=== PATIENT | female | born 2000 | race African-American/Black ===

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

== ENCOUNTER 2019-01-14 16:32 | Emergency (ER) | payer OTHER ==
[2019-01-14 16:53] VITALS: BP 133/82
[2019-01-14] MEDS ORDERED: Ibuprofen TAB* 400 MG PO ONE (18:10)
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
--- NOTE | 2019-01-15 08:05 | UC ---
Course/Dx - Course Course Of Treatment: Dr. Gonzalez radiologist Requested for the patient to be referred to neurosurgery for evaluation for a chronic issue of the lumbar spine. The patient has chronic issues with a spondylolysis. We will give a call to the patient and refer her to Dr. Griffin who was mrp controller for neurosurgery. - Diagnoses Provider Diagnoses: Low back strain, Cervical paraspinal muscle spasm, UTI (urinary tract infection ) Discharge - Sign-Out/Discharge Documenting (check all that apply): Patient Departure All imaging exams completed and their final reports reviewed: Yes - Discharge Plan Condition: Stable Disposition: HOME Prescriptions: Cephalexin CAP* [Keflex CAP*] 500 mg PO BID #14 cap Cyclobenzaprine TAB* [Flexeril 10 MG TAB*] 10 mg PO BID PRN #14 tab PRN Reason: Spasms - Muscle Ibuprofen TAB* [Motrin TAB* 600 MG] 600 mg PO Q6H PRN #30 tab PRN Reason: Pain Patient Education Materials: Urinary Tract Infection in Women (ED), Low Back Strain (ED), Muscle Spasm (ED) Forms: *Work Release Referrals: [facility] [Provider Group] - 3 Days Aviva Morgan MD [Primary Care Provider] - 3 Days Additional Instructions: 1- Please continue taking Ibuprofen PO q6-8hrs after meals as directed for pain. 2- Take Flexeril PO as directed for muscle spasm. Please do not drive while taking the medication. 3- Wear a back support. Avoid strenuous exercise of heavy lifting. 4- Take Keflex PO as directed for possible UTI. Urine was sent to the lab. You will be notified of any abnormality 5- Please follow up with Orthopedic Dr from [facility] if not improvement of symptoms, and further management on your symptoms. - Billing Disposition and Condition Condition: STABLE Disposition: Home
--- NOTE | 2019-01-17 17:02 | UC ---
- Progress Note Progress Note: urine culture final: Staphylococcus aureus 50,000-75,000 CFU/mL Patient is on Keflex, which will likely covering the staph aureus as it is Sensitive to cefazolin. RN to call and check with patient if her urinary symptoms have improved. If she still has urinary symptoms, we can switch antibiotic to a different one. Course/Dx - Diagnoses Provider Diagnoses: Low back strain, Cervical paraspinal muscle spasm, UTI (urinary tract infection ) Discharge - Sign-Out/Discharge Documenting (check all that apply): Post-Discharge Follow Up All imaging exams completed and their final reports reviewed: No - Discharge Plan Condition: Stable Disposition: HOME Prescriptions: Cephalexin CAP* [Keflex CAP*] 500 mg PO BID #14 cap Cyclobenzaprine TAB* [Flexeril 10 MG TAB*] 10 mg PO BID PRN #14 tab PRN Reason: Spasms - Muscle Ibuprofen TAB* [Motrin TAB* 600 MG] 600 mg PO Q6H PRN #30 tab PRN Reason: Pain Patient Education Materials: Urinary Tract Infection in Women (ED), Low Back Strain (ED), Muscle Spasm (ED) Forms: *Work Release Referrals: [facility] [Provider Group] - 3 Days Aviva Morgan MD [Primary Care Provider] - 3 Days Additional Instructions: 1- Please continue taking Ibuprofen PO q6-8hrs after meals as directed for pain. 2- Take Flexeril PO as directed for muscle spasm. Please do not drive while taking the medication. 3- Wear a back support. Avoid strenuous exercise of heavy lifting. 4- Take Keflex PO as directed for possible UTI. Urine was sent to the lab. You will be notified of any abnormality 5- Please follow up with Orthopedic Dr from [facility] Medicine if not improvement of symptoms, and further management on your symptoms. - Billing Disposition and Condition Condition: STABLE Disposition: Home
== END 2019-01-14 19:20 | disposition home or self-care (01) ==
LOC: UCEAST 16:32
DX: S39.012A Strain of muscle, fascia and tendon of lower back, initial encounter (principal); V49.9XXA Car occupant (driver) (passenger) injured in unspecified traffic accident, initial encounter; Y92.9 Unspecified place or not applicable; M47.816 Spondylosis without myelopathy or radiculopathy, lumbar region; M62.838 Other muscle spasm; N39.0 Urinary tract infection, site not specified; B95.61 Methicillin susceptible Staphylococcus aureus infection as the cause of diseases classified elsewhere; Z32.02 Encounter for pregnancy test, result negative; G89.21 Chronic pain due to trauma; F17.210 Nicotine dependence, cigarettes, uncomplicated
CPT/HCPCS: 72050; 72110; 81003; 84702; 87077; 87086; 87186; 99212; A9270-GY; G0463

== ENCOUNTER 2019-02-04 14:48 | Emergency (ER) | payer OTHER ==
--- NOTE | 2019-02-04 14:57 | UC ---
Lower Extremity/Ankle HPI - HPI Summary HPI Summary: 18 yo female presents with RIGHT ankle pain. She tells me that last night she was walking her dog and the dog pulled. Pt stumbled going forward and inverted her right ankle. Has some pain in the lateral aspect since that time. She is most concerned because she has a history of fx x3 to this foot/ankle. She has been elevating and applying ice which has helped, but weight bearing makes her pain worse. Denies numbness or tingling. - History of Current Complaint Stated Complaint: RT ANKLE INJURY Time Seen by Provider: 02/04/19 14:57 Hx Obtained From: Patient Hx Last Menstrual Period: 2 weeks Onset/Duration: Sudden Onset Severity Initially: Mild Severity Currently: Mild Pain Intensity: 3 Pain Scale Used: 0-10 Numeric Aggravating Factor(s): Standing, Ambulation Alleviating Factor(s): Rest, Elevation Able to Bear Weight: Yes - Allergies/Home Medications Allergies/Adverse Reactions: Allergies Allergy/AdvReac Type Severity Reaction Status Date / Time No Known Allergies Allergy Verified 02/04/19 15:04 Home Medications: Home Medications NK [No Home Medications Reported] 02/04/19 [History Confirmed 02/04/19] PMH/Surg Hx/FS Hx/Imm Hx - Additional Past Medical History Additional PMH: None - Surgical History Surgical History: None - Family History Known Family History: Positive: Unknown - adopted - no knowledge of family history Family History: unknown- pt is adopted - Social History Lives: With Family Alcohol Use: None Substance Use Type: None Substance Use Comment - Amount & Last Used: a few times a week Smoking Status (MU): Light Every Day Tobacco Smoker Type: Cigarettes Have You Smoked in the Last Year: No Household Exposure Type: Cigarettes - Immunization History Most Recent Influenza Vaccination: 07/18 Vaccination Up to Date: Yes Review of Systems All Other Systems Reviewed And Are Negative: Yes Constitutional: Positive: Negative Skin: Positive: Negative Respiratory: Positive: Negative Cardiovascular: Positive: Negative Neurovascular: Positive: Negative Musculoskeletal: Positive: Other: - Right ankle pain Neurological: Positive: Negative Psychological: Positive: Negative Physical Exam - Summary Physical Exam Summary: GENERAL: NAD. WDWN. No pain distress. SKIN: No rashes, sores, lesions, or open wounds. CHEST: No accessory muscle use. Breathing comfortably and in no distress. CV: Pulses intact PT and DP. Cap refill <2seconds MSK: RIGHT ANKLE: Mild TTP at lateral malleolus overlying ATFL. Mild edema here. FROM. Strength 5/5. Negative talar tilt. No increased laxity. Negative [place] test. NTTP dorsal aspect of foot or at area of avulsion seen on XR. NEURO: Alert. Sensations intact and symmetric B/L LEs PSYCH: Age appropriate behavior. Triage Information Reviewed: Yes Vital Signs: Vital Signs: Temp Pulse Resp BP Pulse Ox 98.0 F 83 18 145/82 99 02/04/19 15:04 02/04/19 15:04 02/04/19 15:04 02/04/19 15:04 02/04/19 15:04 Vital Signs Reviewed: Yes Lower Extremity Course/Dx - Course Course Of Treatment: XR: IMPRESSION: SMALL AVULSION FRACTURE FRAGMENT ARISING FROM THE DORSAL NAVICULAR BONE, AGE INDETERMINATE I compared today's XR to right ankle XR in 07/2017 and small avulsion fragment was present at that time as well and appears unchanged today. This is consistent with pt's history of previous non-healing fx. Today I suspect she has an ankle sprain. In the clinic her ankle was AMPARO wrapped , gel splint applied, and provided with crutches for support. Advised to RICE and f/u with Ortho if symptoms do not improve in 5-7 days - Differential Dx/Diagnosis Provider Diagnosis: Ankle sprain Discharge - Sign-Out/Discharge Documenting (check all that apply): Patient Departure All imaging exams completed and their final reports reviewed: Yes - Discharge Plan Condition: Stable Disposition: HOME Patient Education Materials: Ankle Sprain (ED) Referrals: Aviva Morgan MD [Primary Care Provider] - Venu Terrazas MD [Medical Doctor] - If Needed Additional Instructions: If you develop a fever, shortness of breath, chest pain, new or worsening symptoms - please call your PCP or go to the ED immediately. 1) Rest, Ice, and elevate your ankle intermittently throughout the day to reduce pain and swelling 2) Use the gel splint and crutches as needed for discomfort 3) If your symptoms do not improve in 5-7 days, please call Orthopedics at the number below to schedule an appointment for a recheck - Billing Disposition and Condition Condition: STABLE Disposition: Home
[2019-02-04 15:08] VITALS: BP 145/82
== END 2019-02-04 15:50 | disposition home or self-care (01) ==
LOC: UCEAST 14:48
DX: S93.401A Sprain of unspecified ligament of right ankle, initial encounter (principal); X58.XXXA Exposure to other specified factors, initial encounter; Y93.K1 Activity, walking an animal; Y92.9 Unspecified place or not applicable; Y99.8 Other external cause status; F17.210 Nicotine dependence, cigarettes, uncomplicated
CPT/HCPCS: 99213; G0463

== ENCOUNTER 2019-11-12 10:48 | Emergency (ER) | payer OTHER ==
[2019-11-12 11:45] VITALS: BP 110/77
--- NOTE | 2019-11-12 12:23 | UC ---
Throat Pain/Nasal Allan HPI - HPI Summary HPI Summary: 19 R Kamaljit of present illness sore throat 2 days. Patient states yesterday she noticed white spots in the back of her throat. Notes pain with swallowing. Denies URI symptoms. Denies cough and shortness breath. Denies nausea or vomiting. Denies fever and chills. Denies taking anything for symptomatic relief. Would like to be tested for strep. Denies exposure - History of Current Complaint Chief Complaint: UCGeneralIllness Stated Complaint: SORE THROAT Hx Obtained From: Patient Hx Last Menstrual Period: 10/14/19 Pain Intensity: 4 Pain Scale Used: 0-10 Numeric - Allergies/Home Medications Allergies/Adverse Reactions: Allergies Allergy/AdvReac Type Severity Reaction Status Date / Time No Known Allergies Allergy Verified 11/12/19 11:41 Home Medications: Home Medications NK [No Home Medications Reported] 02/04/19 [History Confirmed 11/12/19] PMH/Surg Hx/FS Hx/Imm Hx Previously Healthy: Yes - Surgical History Surgical History: None - Family History Known Family History: Positive: Unknown - adopted - no knowledge of family history Family History: unknown- pt is adopted - Social History Alcohol Use: None Substance Use Type: None Substance Use Comment - Amount & Last Used: a few times a week Smoking Status (MU): Former Smoker Type: Cigarettes Length of Time of Smoking/Using Tobacco: 6 months Have You Smoked in the Last Year: No When Did the Patient Quit Smoking/Using Tobacco: 2018 Household Exposure Type: Cigarettes - Immunization History Most Recent Influenza Vaccination: 07/18 Vaccination Up to Date: Yes Review of Systems All Other Systems Reviewed And Are Negative: Yes Constitutional: Positive: Negative ENT: Positive: Sore Throat Respiratory: Positive: Negative Cardiovascular: Positive: Negative Gastrointestinal: Positive: Negative Musculoskeletal: Positive: Negative Neurological/Mental Status: Positive: Negative Physical Exam Triage Information Reviewed: Yes Appearance: Well-Appearing, No Pain Distress, Well-Nourished Vital Signs: Initial Vital Signs Temp 97.7 F 11/12/19 11:41 Pulse 66 11/12/19 11:41 Resp 16 11/12/19 11:41 BP 110/77 11/12/19 11:41 Pulse Ox 100 11/12/19 11:41 Lab Results 11/12/19 Range/Units 11:59 Group A Strep Rapid Negative (Negative) Vital Signs Reviewed: Yes Eyes: Positive: Conjunctiva Clear ENT: Positive: Hearing grossly normal, Pharyngeal erythema, TMs normal, Tonsillar swelling, Tonsillar exudate, Uvula midline. Negative: Nasal congestion, Trismus, Muffled voice, Hoarse voice Neck exam: Normal Neck: Positive: Supple, Nontender, No Lymphadenopathy Respiratory Exam: Normal Respiratory: Positive: Lungs clear, Normal breath sounds, No respiratory distress, No accessory muscle use Cardiovascular Exam: Normal Cardiovascular: Positive: RRR Neurological: Positive: Alert Psychological: Positive: Age Appropriate Behavior Skin Exam: Normal Throat Pain/Nasal Course/Dx - Course Course Of Treatment: Negative rapid strep test. Discussed viral illness vs bacterial illness with patient. Patient prefers to treat symptoms at this time with otc medications. I instructed to follow up with pcp if symptoms persist. Patient voiced understanding and agreed with treatment plan. - Differential Dx/Diagnosis Provider Diagnosis: Exudative pharyngitis Discharge ED - Sign-Out/Discharge Documenting (check all that apply): Patient Departure All imaging exams completed and their final reports reviewed: No Studies - Discharge Plan Condition: Stable Disposition: HOME Patient Education Materials: Pharyngitis (ED) Referrals: Aviva Morgan MD [Primary Care Provider] - If Needed Additional Instructions: As discussed, you tested negative for strep throat today. Your symptoms are likely caused by a virus and should resolve without treatment. You may take ibuprofen and/or tylenol as directed for fever and pain relief. You may use over the counter throat sprays, throat lozenges, and drink tea with honey for symptomatic relief. Get plenty of rest and fluids. Follow up with your primary care provider if your symptoms do not improve within 7-10 days. - Billing Disposition and Condition Condition: STABLE Disposition: Home
== END 2019-11-12 12:43 | disposition home or self-care (01) ==
LOC: UCEAST 10:48
DX: J02.9 Acute pharyngitis, unspecified (principal); Z87.891 Personal history of nicotine dependence
CPT/HCPCS: 87651; 99211; G0463